=== PATIENT | female | born 1975 | race Caucasian/White ===

== ENCOUNTER 2018-06-30 09:39 | Emergency (ER) | payer BC, MEDICAID ==
[~2018-06-30] VITALS: Ht 149.9 cm; Wt 100.0 kg
[2018-06-30 09:44] VITALS: BP 168/77
[2018-06-30] MEDS ORDERED: SITA1TAB6 PO (09:48)
[2018-06-30] MEDS ORDERED: BISO5TAB13 PO (09:48)
== END 2018-06-30 10:14 | disposition home or self-care (01) ==
LOC: ER 09:39
DX: E11.9 Type 2 diabetes mellitus without complications (principal); I10 Essential (primary) hypertension; Z98.890 Other specified postprocedural states; Z91.013 Allergy to seafood
CPT/HCPCS: 99283

== ENCOUNTER 2020-06-28 15:53 | Emergency (ER) | payer BC ==
[~2020-06-28] VITALS: Ht 149.9 cm; Wt 98.0 kg
[~2020-06-28 15:53] MED LIST: BISO5TAB13 PO; SITA1TAB6 PO
[2020-06-28] MEDS ORDERED: ACETAMINOPHEN 325MG TABLET PO STA (18:18)
[2020-06-28] MEDS ORDERED: MAGNESIUM/ALUMINUM HYDROXIDE/SIMETHICONE 30ML UDC PO STA (18:18)
[2020-06-28] MEDS ORDERED: FAMOTIDINE 20MG TABLET PO ONE (18:30)
[2020-06-28 20:03] LABS: BASOPHILS % 0.6 % (0.0-2.0); EOSINOPHILS % 0.2 % (0.0-5.0); HEMATOCRIT. 41.9 % (36.0-48.0); HEMOGLOBIN. 14.6 g/dL (12.0-16.0); LYMPHOCYTES % 20.1 % (20.0-50.0); MEAN CORPUSCULAR HEMOGLOBIN 30.4 pg (28.0-32.0); MEAN CORPUSCULAR VOLUME 87.7 fL (81.0-99.0); MEAN PLATELET VOLUME 7.4 fl (7.4-10.4); MONOCYTES % 4.3 % (2.0-8.0); NEUTROPHILS % 74.8 % (40.0-76.0); PLATELET 301 x1000/uL (130-400); RED BLOOD CELL COUNT 4.78 mill/uL (4.2-5.4); RED CELL DISTRIBUTION WIDTH 13.4 % (11.6-14.6)
[2020-06-28 20:13] LABS: HCG SCREEN NEGATIVE
[2020-06-28 20:36] LABS: CHLORIDE 104 mEq/L (98-107)
[2020-06-28 21:20] LABS: CLARITY URINE CLOUDY (CLEAR); COLOR URINE YELLOW (YELLOW); KETONES URINE 3+ (NEGATIVE); LEUKOCYTE ESTERASE URINE 1+ (NEGATIVE); NITRITE URINE NEGATIVE (NEGATIVE); OCCULT BLOOD URINE NEGATIVE (NEGATIVE); PROTEIN URINE TRACE (NEGATIVE); SPECIFIC GRAVITY URINE 1.029 (1.005-1.030); UROBILINOGEN URINE 0.2 E.U./dL (0.2-1.0)
[2020-06-28] MEDS ORDERED: IBUP-2028 MT (21:51)
[2020-06-28] MEDS ORDERED: NITR-87 MT (21:51)
[2020-06-28 22:00] VITALS: BP 142/73
== END 2020-06-28 22:04 | disposition home or self-care (01) ==
LOC: ER 15:53
DX: N39.0 Urinary tract infection, site not specified (principal); K80.80 Other cholelithiasis without obstruction; I10 Essential (primary) hypertension; E11.9 Type 2 diabetes mellitus without complications
CPT/HCPCS: 36415; 76705; 80053; 81003; 81025; 84703; 85025; 99284

== ENCOUNTER 2024-11-28 14:49 | Emergency (ER) | payer SELFPAY ==
[~2024-11-28] VITALS: Ht 149.9 cm; Wt 100.0 kg
[~2024-11-28 14:49] MED LIST changes: +IBUP-2028 MT; +NITR-87 MT
[2024-11-28 14:52] VITALS: TEMP 36.8; O2SAT 100
[2024-11-28] MEDS: LORAZEPAM 1MG TABLET PO ONE (15:49)
[2024-11-28] MEDS: SODIUM CHLORIDE 0.9% 1,000 ML IV ONE (15:49)
[2024-11-28 16:02] LABS: BASOPHILS % 0.3 % (0.0-2.0); EOSINOPHILS % 0.4 % (0.0-5.0); HEMATOCRIT. 38.2 % (36.0-48.0); HEMOGLOBIN. 12.9 g/dL (12.0-16.0); LYMPHOCYTES % 26.9 % (20.0-50.0); MEAN PLATELET VOLUME 7.2 fl (7.4-10.4); MONOCYTES % 5.3 % (2.0-8.0); NEUTROPHILS % 67.1 % (40.0-76.0); PLATELET 297 x1000/uL (130-400); RED BLOOD CELL COUNT 4.54 mill/uL (4.2-5.4); RED CELL DISTRIBUTION WIDTH 13.2 % (11.6-14.6)
[2024-11-28 16:15] LABS: TROPONIN I HIGH SENSITIVITY < 4 ng/L (3.0-34)
[2024-11-28 16:22] LABS: CREATININE 0.8 mg/dL (0.6-1.0); UREA NITROGEN BLOOD 8 mg/dL (9-23)
[2024-11-28 16:23] LABS: ASPARTATE AMINOTRANSFERASE 17 IU/L (<34)
[2024-11-28 16:24] LABS: BILIRUBIN DIRECT 0.2 mg/dL (<=3.0); BILIRUBIN TOTAL 1.0 mg/dL (0.1-1.0); PROTEIN TOTAL 7.7 g/dL (6.0-8.3)
[2024-11-28] MEDS ORDERED: PROP10TA10 MT (16:29)
[2024-11-28 16:45] VITALS: BP 138/66; PULSE 91; RESP 16; O2SAT 100
== END 2024-11-28 17:00 | disposition home or self-care (01) ==
LOC: ER 14:49 → CMPBEDREQ 11-29 08:20
DX: F41.0 Panic disorder [episodic paroxysmal anxiety] (principal); I10 Essential (primary) hypertension; E11.9 Type 2 diabetes mellitus without complications; F41.9 Anxiety disorder, unspecified; R06.02 Shortness of breath; Z98.890 Other specified postprocedural states; Z88.0 Allergy status to penicillin
CPT/HCPCS: 99284; 96360; 71045; 80076; 80048; 83880; 83735; 85025; 84484; 36415; J7030